=== PATIENT | female | born 1970 | race Caucasian/White ===

== ENCOUNTER 2020-02-11 | Emergency (ER) | payer BC ==
[2020-02-11 00:16] VITALS: TEMP 98.6
--- NOTE | 2020-02-11 00:23 | ED.PDOC ---
History of Present Illness - General Chief Complaint: Neck Injury/Pain Time Seen by Provider: 02/11/20 00:19 - History of Present Illness Initial Comments: 50 y/o female with one week of neck pain radiating to R arm. She fell back into a chair, hit her head and immediately had radiating pain to R arm. She says it feels like a burning type pain to R lower neck and down to R elbow Home Medications: Ambulatory Orders Diazepam [Valium] 5 mg PO Q6HR PRN #12 tab 02/11/20 Review of Systems - Review of Systems Constitutional: States: no symptoms reported EENTM: States: no symptoms reported Respiratory: States: no symptoms reported Cardiology: States: no symptoms reported Gastrointestinal/Abdominal: States: no symptoms reported Genitourinary: States: no symptoms reported Musculoskeletal: States: neck pain Skin: States: no symptoms reported Neurological: States: paresthesia - RUE Past Medical History (General) - Patient Medical History Hx Seizures: No Hx Stroke: No Hx Dementia: No Hx Asthma: No Hx of COPD: No Hx Cardiac Disorders: No Hx Congestive Heart Failure: No Hx Pacemaker: No Hx Hypertension: No Hx Thyroid Disease: Yes Hx Diabetes: No Hx Gastroesophageal Reflux: No Hx Renal Disease: No Hx Cancer: No Hx of HIV: No Hx Hepatitis C: No Hx MRSA: No Surgical History: other - Vaccination History Hx Tetanus, Diphtheria Vaccination: Yes Hx Influenza Vaccination: No Hx Pneumococcal Vaccination: No - Social History Hx Tobacco Use: Yes Hx Chewing Tobacco Use: No Hx Alcohol Use: Yes Hx Substance Use: No Hx Substance Use Treatment: No Hx Depression: No Feels Threatened In Home Enviroment: No Feels Threatened In a Relationship: No Hx Physical Abuse: No Hx Emotional Abuse: No Hx Suspected Abuse: No - Female History Patient is a Female of Child Bearing Age (10 -59 yrs old): Yes Patient : No - Triage Comment ED Triage Comment: The patient complained of right sided neck pain that radiated to her right scapula. Family Medical History - Family History Mother Family History: Unknown Physical Exam - Physical Exam General Appearance: Alert, No apparent distress Ears, Nose, Throat: normal ENT inspection Neck: limited range of motion, tender lateral - R near C6, & C7 Respiratory: no respiratory distress Neurologic: no motor/sensory deficits, alert, normal mood/affect, oriented x 3 Skin Exam: normal color, warm/dry Departure - Departure Clinical Impression: Cervical radiculopathy Condition: Good Departure Forms: ED Discharge - Pt. Copy, Patient Portal Self Enrollment Prescriptions: Diazepam [Valium] 5 mg PO Q6HR PRN #12 tab PRN Reason: Muscle Spasms Home Medications: Ambulatory Orders Diazepam [Valium] 5 mg PO Q6HR PRN #12 tab 02/11/20
--- NOTE | 2020-02-11 00:49 | CT ---
PROCEDURE: Cervical Spine CLINICAL HISTORY: 50 years Female fall, neck pain and radiation to R arm COMPARISON: None. TECHNIQUE: Contiguous axial images obtained through the cervical spine without IV contrast. Coronal and sagittal reformatted images obtained. This exam was performed according to our department optimization program which includes automated exposure control, adjustment of the mA and/or kv according to patient size and/or use of iterative reconstruction technique. FINDINGS: There is mild reversal of the normal lordosis. Vertebral body alignment is unremarkable. No acute fractures. There are degenerative changes of the uncovertebral joints. At C4-5, there is mild narrowing of the spinal canal and moderate right neural foraminal stenosis. At C6-7 there is mild to moderate spinal stenosis and [id number] bilateral neural foraminal stenosis. IMPRESSION: No acute cervical spinal fracture is identified. Electronically signed by: Matt Thomas MD 02/11/2020 12:48 AM CDT
[2020-02-11] MEDS ORDERED: HYDROcodone 5MG/APAP 325MG 1 EA TAB PO ONE (00:57)
[2020-02-11] MEDS ORDERED: ONDANSETRON ODT 8 MG TAB SL ONE (00:58)
[2020-02-11] MEDS ORDERED: diazePAM 5 MG TAB PO ONE (00:58)
[2020-02-11 01:06] VITALS: BP 128/86; O2SAT 98
== END 2020-02-11 01:42 | disposition home or self-care (01) ==
LOC: ER
DX: M54.12 Radiculopathy, cervical region (principal); F17.200 Nicotine dependence, unspecified, uncomplicated